=== PATIENT | female | born 1965 | race Caucasian/White ===

== ENCOUNTER 2016-10-08 11:36 | Emergency (ER) | payer BC, OTHER ==
[~2016-10-08] VITALS: Ht 167.6 cm; Wt 106.6 kg
--- NOTE | ~2016-10-08 | EKG ---
[place] [address] [facility] [employer] [place] [address] ELECTROCARDIOGRAM REPORT Name: ADELITALAMINEVANESA COVARRUBIAS [facility] [id number] Admission: 10/08/16 Attend Phys: Discharge: 10/08/16 Date of : 65 Report #: [id number] THIS REPORT FOR: //name// [facility] ED Test Date: 2016-10-08 Test Time: 11:42:35 Pat Name: LAMINE UREÑA Department: Room: Gender: F Lab Support Tech: [id number] : 1965 Requested By: Zeinab Sue Order Number: [id number] MD: Chandana Tellez Measurements Intervals [place] Rate: 121 P: 61 AK: 150 QRS: 17 QRSD: 88 T: 108 QT: 333 QTc: 473 Interpretive Statements Sinus tachycardia Ventricular bigeminy LAE, consider biatrial enlargement Electronically Signed On 10-09-2016 16:38:09 CDT by Chandana Tellez [email or web address] <ELECTRONICALLY SIGNED> By: Chandana Tellez MD 10/09/16 1638 1142 1142 MD SHANNAN Garcia
[~2016-10-08 11:36] MED LIST: ALPRAZOLAM ER1 MG PO; AMITRIPTYLINE H10 M1 PO; APAP500 PO; ASPIRIN325 PO; ATORVASTATIN CA40 MG PO; B12INJ IM; CELEBREX 200 M200 MG PO; CHANTIX1 MG; CIPROFLOXACIN500 M1 PO; CITRATE OF MAG296 ML PO; COLACE 100 MG100 MG PO; COLACE100 MG PO; COREG3.125 MG PO; CYMBALTA30 MG PO; DILAUDID 4 MG TA4 M1 PO; ELAVIL PO; FLAGYL500 MG PO; FLEXERIL PO; FLONASE 0.05%50 MCG NASAL; FOLIC ACID1 MG PO; HYDROCHLOROTH12.5 MG PO; HYDROCHLOROTHIA25 M1 PO; HYDROCODON-ACE1 EAC5 PO; HYDROCODON-ACE1 EAC8 PO; HYDROCODONE-AP1 EAC1 PO; LASIX 40 MG TAB40 M2 PO; LIDODERM 5%1 PATCH TD; LISINOPRIL2.5 MG PO; LISINOPRIL5 MG PO; LYRICA 75 MG CA75 MG PO; MELOXICAM7.5 MG PO; MIRALAX255 GM PO; MOBIC7.5 M1 PO; PERCOCET 5-3251 EACH PO; PERCOCET PO; PHENERGAN 25 MG25 M1 PO; POTASSIUM20 PO; PREDNISONE 20 M20 M1 PO; PREDNISONE 20 M20 MG PO; PRILOSEC 20 MG20 MG PO; PRILOSEC40 MG PO; PROTONIX40 M2 PO; PROZAC40 MG PO; REGLAN 10 MG TA10 M1 PO; SENNA PO; SYMBICORT160 MCG/4. INH; TOPROL XL50 MG PO; TRAMADOL 50 MG50 MG PO; VALIUM5 MG PO; XANAX 0.25 MG0.25 MG PO; ZOCOR40 MG PO; ZOFRAN ODT4 M1 PO; ZOFRAN ODT4 MG PO
[2016-10-08 11:57] LABS: ABG SAMPLE TYPE ARTERIAL; HCO3 22.3 mmol/L (22.0-26.0); LACTATE 2.86 mmol/L (0.5-2.0); O2(CT) 16.2 mL/dL (15.0-23.0); O2Hb 94.6 % (92.0-98.0); PCO2 23.4 mmHg (35.0-45.0); PO2 93.4 mmHg (80.0-100.0); STICK SITE R.RADIAL; pH 7.597 (7.360-7.450); sO2 98.2 % (92.0-98.0)
[2016-10-08 12:34] LABS: ABSOLUTE NEUTROPHILS 8.3 thou/uL (1.4-8.2); BASOPHILS 0.8 % (0.0-2.0); CALCIUM 9.3 mg/dL (8.5-10.1); CREATININE 0.8 mg/dL (0.6-1.0); EOSINOPHILS 0.8 % (0.0-3.0); HEMATOCRIT 33.9 % (37.0-47.0); HEMOGLOBIN 11.4 gm/dL (12.0-15.0); MCH 27.4 pg (26.0-34.0); MCHC 33.7 g/dL (28.0-37.0); MCV 81.4 fL (80.0-100.0); MONOCYTES 8.8 % (1.0-8.0); PLATELET COUNT 271 thou/uL (150-400); POLYS 67.6 % (36.0-66.0); POTASSIUM 4.2 mmol/L (3.5-5.1); RBC 4.17 mil/uL (4.20-5.00); RDW 15.9 % (10.5-14.5); WBC 14.1 thou/uL (4.0-11.0)
[2016-10-08 12:35] LABS: MANUAL DIFF NO
[2016-10-08] MEDS ORDERED: PREDNISONE 20 M20 MG PO (12:52)
[2016-10-08] MEDS ORDERED: TUSSIONEX PENN473 ML PO (12:52)
== END 2016-10-08 15:25 | disposition home or self-care (01) ==
LOC: ER 11:36
PROVIDERS: Emergency Medicine
DX: J06.9 Acute upper respiratory infection, unspecified (principal); R06.00 Dyspnea, unspecified; R07.89 Other chest pain; R06.4 Hyperventilation; J45.909 Unspecified asthma, uncomplicated; K21.9 Gastro-esophageal reflux disease without esophagitis; F17.210 Nicotine dependence, cigarettes, uncomplicated; M19.90 Unspecified osteoarthritis, unspecified site; Z87.442 Personal history of urinary calculi; Z90.49 Acquired absence of other specified parts of digestive tract; Z87.01 Personal history of pneumonia (recurrent); Z96.651 Presence of right artificial knee joint; Z98.890 Other specified postprocedural states; Z98.2 Presence of cerebrospinal fluid drainage device; Z88.0 Allergy status to penicillin; Z88.5 Allergy status to narcotic agent

== ENCOUNTER 2017-07-24 21:58 | Inpatient (IN) | payer BC, OTHER ==
[~2017-07-24] VITALS: Ht 170.2 cm; Wt 123.4 kg
--- NOTE | ~2017-07-24 | HC ---
[facility] [place] [address] CONSULTATION Name: LAMINE UREÑA Room #: 458-P ADM IN M.R.#: [id number] Admission: 07/24/17 Attend Phys: Glenn Moreno MD Discharge: Date of : 65 Report #: [id number] THIS REPORT FOR: //name// CC: FAM unknown Glenn Moreno INFECTIOUS DISEASES CONSULTATION REASON FOR CONSULTATION: I was asked to evaluate concerning meningitis. HISTORY OF PRESENT ILLNESS: The patient was a 51-year-old with a previous history of chronic headaches, pseudotumor cerebri, obstructive sleep apnea and rheumatoid arthritis, who was feeling well up until yesterday afternoon, when she had the acute onset of fever, chills, headache and neck stiffness. She had temperature up to 103 degrees. It did not improve after several hours and she presented to the Emergency Room for further evaluation at [facility]. There, a spinal tap was performed, which showed 38 wbcs, 79% neutrophils, 25 rbcs, protein of 63 and glucose of 56. I do not know what the opening pressure was. She was placed on vancomycin, meropenem and Decadron. Transfers to [facility] Intensive Care Unit for further treatment. Fever has resolved. Headache has improved. Still has some neck discomfort. Appetite has been reasonable. Reports no rash, nausea, vomiting, diarrhea, dysuria or frequency. No change in her chronic back pain. No change in mental status. Denies any vertigo or decreased hearing. She does have underlying asthma and was on prednisone about a week ago. She had sinus congestion at that time. It is noted that her CT scan of her head performed at [facility] was unremarkable. She reports traveling to see her family, first part of the week. Several small children who otherwise had been healthy. 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 No recent instrumentations to her back. She has a history of lumbar spine disease and has had reconstructive surgery and a cage placed. Also for her previous pseudotumor cerebri, had a lumbar drain placed. This subsequently was removed in 2014. She did have a spinal leak that required surgical repair. She has had no further issues since then. It is noted that her headaches improved significantly after going on CPAP at night. ALLERGIES: HYDROMORPHONE AND PENICILLIN. Penicillin was given when she was a baby and she had convulsions. Unclear if she is actually allergic to penicillin or not. She can tolerate cephalosporins. MEDICATIONS: Included Cymbalta, Coreg, omeprazole, Symbicort and Prilosec. In her record, it states that she was on 20 mg of prednisone, although the patient states she was off prednisone. [address] [address] CONSULTATION Name: ADELITALAMINE MARCI Room #: 458-P [facility] IN M.R.#: [id number] Admission: 07/24/17 Attend Phys: Glenn Moreno MD Discharge: Date of : 65 Report #: [id number] PAST MEDICAL HISTORY: Asthma; COPD; obstructive sleep apnea; lumbar disk disease, L5-S1, status post reconstruction; hypertension; depression; LP shunt 2008, removed 2014; nephrolithiasis; IBS; gastroesophageal reflux; JRA; degenerative arthritis, bilateral total knee arthroplasties; right hip repair; right rotator cuff repair; total abdominal hysterectomy; appendectomy; tonsillectomy; cholecystectomy and pneumonia in February. FAMILY HISTORY: Noncontributory. SOCIAL HISTORY: Smoker of cigarettes. No significant alcohol intake. No HIV risk factors. Lives at home with her family, and 2 teenaged children. 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 REVIEW OF SYSTEMS: In addition to the above, she has had no flare up of her arthritis. She has had no rash, nausea, vomiting or diarrhea. No pleuritic chest pain. It is noted, when taking her history, she was a bit inconsistent with her report. Some inconsistencies from the chart and her verbal history. PHYSICAL EXAMINATION: VITAL SIGNS: Afebrile, hemodynamically stable. GENERAL: Alert and cooperative. HEENT: Unremarkable. Eyes unremarkable. Mouth unremarkable. NECK: Supple, although she did complain of discomfort. EXTREMITIES: Straight leg raising normal. Extremities unremarkable. SKIN: Unremarkable. LYMPH: Unremarkable. LUNGS: Clear. HEART: Regular, without murmur. ABDOMEN: Soft and nontender. NEUROLOGICAL EXAMINATION: Nonfocal. LABORATORY STUDIES: CSF examination as noted above. Chest x-ray was clear. CT scan of the head negative with no sinus changes. Sodium 139, potassium 3.9, bicarbonate 25 and creatinine 0.9. Hemoglobin 11.3, platelet count 263,000 and white count was 7.5. Liver function test normal. IMPRESSION: A 51-year-old with acute febrile illness with evidence of meningitis. This is predominantly neutrophilic. The patient has had previous back surgery, exposure to young children and exposure to new job. Therefore, bacterial and viral etiologies would seem most likely. Doubt we are dealing with a tick-borne process. The patient has no history of such.HSV would also be considered. RECOMMENDATIONS: We will continue antibiotic coverage for community-acquired bacterial meningitis. We will obtain CSF sample for bacterial culture, viral [facility] [address] [place] [address] CONSULTATION Name: LAMINE UREÑA Room #: 458-P ADM IN M.R.#: [id number] Admission: 07/24/17 Attend Phys: Glenn Moreno MD Discharge: Date of : 65 Report #: [id number] analysis for HSV and Enterovirus. Continue in droplet precautions for the next 24 hours. The patient appears stable at this point in time. Should be able to get out of the ICU and go to a monitored bed. <ELECTRONICALLY SIGNED> By: Andrea Castro MD 07/26/17 1041 1050 1344 Andrea Castro MD /nt
[~2017-07-24 21:58] MED LIST changes: +TUSSIONEX PENN473 ML PO
[2017-07-25] VITALS (20 sets, daily range): BP systolic 112–158; BP diastolic 62–93
[2017-07-25] MEDS ORDERED: VENTOLIN HFA 1818 GM INH (02:21)
[2017-07-25] MEDS ORDERED: BREO ELLIPTA 11 EACH INH (02:22)
[2017-07-25] MEDS ORDERED: VOLTAREN-XR100 MG (02:30)
[2017-07-25] MEDS ORDERED: TOPROL XL25 MG PO (02:31)
[2017-07-25] MEDS ORDERED: SPIRIVA INH (02:35)
[2017-07-25 05:13] LABS: HEMATOCRIT 33.6 % (37.0-47.0); HEMOGLOBIN 11.3 gm/dL (12.0-15.0); MCH 27.1 pg (26.0-34.0); MCHC 33.5 g/dL (28.0-37.0); MCV 80.9 fL (80.0-100.0); RBC 4.16 mil/uL (4.20-5.00); RDW 15.3 % (10.5-14.5); WBC 7.5 thou/uL (4.0-11.0)
[2017-07-25 05:17] LABS: CALCIUM 8.9 mg/dL (8.5-10.1); CREATININE 0.9 mg/dL (0.6-1.0); POTASSIUM 3.9 mmol/L (3.5-5.1)
[2017-07-25] MEDS ORDERED: IBUPROFEN 800800 M1 PO (22:18)
[2017-07-26 01:07] VITALS: BP 133/78
[2017-07-26 01:09] LABS: HIV ANTIBODY Non Reactive (Non Reactive)
[2017-07-26 07:14] VITALS: BP 156/93
[2017-07-26 08:45] VITALS: BP 138/76
[2017-07-26 15:20] VITALS: BP 131/72
[2017-07-26 19:41] VITALS: BP 139/81
[2017-07-27] VITALS (7 sets, daily range): BP systolic 135–175; BP diastolic 71–98
[2017-07-27 12:45] LABS: HEMATOCRIT 31.9 % (37.0-47.0); HEMOGLOBIN 10.6 gm/dL (12.0-15.0); MCH 26.7 pg (26.0-34.0); MCHC 33.3 g/dL (28.0-37.0); MCV 80.2 fL (80.0-100.0); RBC 3.98 mil/uL (4.20-5.00); RDW 15.3 % (10.5-14.5); WBC 21.8 thou/uL (4.0-11.0)
[2017-07-27 12:57] LABS: ALBUMIN 3.2 g/dL (3.4-5.0); CALCIUM 8.8 mg/dL (8.5-10.1); CREATININE 0.9 mg/dL (0.6-1.0); MAGNESIUM 2.1 mg/dL (1.8-2.4); POTASSIUM 4.5 mmol/L (3.5-5.1); TOTAL BILIRUBIN 0.2 mg/dL (<0.1-1.0)
[2017-07-27 14:43] LABS: CSF CLARITY CLOUDY; CSF COLOR PINK; VOLUME 13 ml
[2017-07-27 14:44] LABS: CSF WBC 0 /mm3 (0-10)
[2017-07-27 14:45] LABS: CSF RBC 650 /mm3
[2017-07-27 14:48] LABS: CSF GLUCOSE 79 mg/dL (40-70); CSF PROTEIN 34 mg/dL (15-45)
[2017-07-28 03:26] VITALS: BP 138/66
[2017-07-28 04:30] LABS: HEMATOCRIT 30.8 % (37.0-47.0); HEMOGLOBIN 10.5 gm/dL (12.0-15.0); MCHC 34.2 g/dL (28.0-37.0); RBC 3.76 mil/uL (4.20-5.00); RDW 15.6 % (10.5-14.5)
[2017-07-28 04:47] LABS: CALCIUM 7.6 mg/dL (8.5-10.1); CREATININE 0.9 mg/dL (0.6-1.0); POTASSIUM 4.3 mmol/L (3.5-5.1)
[2017-07-28 09:13] VITALS: BP 145/75
[2017-07-28] MEDS ORDERED: ACETAZOLAMIDE250 M1 PO (11:21)
[2017-07-28] MEDS ORDERED: PERCOCET PO (11:21)
[2017-07-28 11:31] VITALS: BP 145/75
== END 2017-07-28 18:18 | disposition home or self-care (01) | DRG 103 ==
LOC: ICU 21:58 → 4W 07-25 18:40
PROVIDERS: Internal Medicine; Nurse Practitioner Family; Specialist
PROC: 009U3ZX Drainage of Spinal Canal, Percutaneous Approach, Diagnostic (ICD-10-PCS; principal; 2017-07-27)
DX: G93.2 Benign intracranial hypertension (principal); I42.9 Cardiomyopathy, unspecified; G47.33 Obstructive sleep apnea (adult) (pediatric); M06.9 Rheumatoid arthritis, unspecified; J44.9 Chronic obstructive pulmonary disease, unspecified; I10 Essential (primary) hypertension; F32.9 Major depressive disorder, single episode, unspecified; K58.9 Irritable bowel syndrome, unspecified; K21.9 Gastro-esophageal reflux disease without esophagitis; F17.210 Nicotine dependence, cigarettes, uncomplicated; M81.0 Age-related osteoporosis without current pathological fracture; Z96.651 Presence of right artificial knee joint; M19.90 Unspecified osteoarthritis, unspecified site; G43.909 Migraine, unspecified, not intractable, without status migrainosus; Z88.8 Allergy status to other drugs, medicaments and biological substances; Z88.0 Allergy status to penicillin; Z79.899 Other long term (current) drug therapy; Z87.442 Personal history of urinary calculi; Z90.710 Acquired absence of both cervix and uterus; Z90.49 Acquired absence of other specified parts of digestive tract; Z87.01 Personal history of pneumonia (recurrent); Z98.2 Presence of cerebrospinal fluid drainage device; Z82.49 Family history of ischemic heart disease and other diseases of the circulatory system
CPT/HCPCS: 10045; 10047; 10078; 27000

== ENCOUNTER → 2020-04-21 | Outpatient (CLI) | payer BC, OTHER ==
[~2020-04-21] VITALS: Ht 170.2 cm; Wt 133.4 kg
[~2020-04-21] MED LIST changes: +ACETAZOLAMIDE250 M1 PO; +ASA81BEC PO; +BACTRIM DS TAB1 EAC1 PO; +BREO ELLIPTA 11 EACH INH; +CRESTOR10 MG PO; +IBUPROFEN 800800 M1 PO; +SPIRIVA INH; +TOPROL XL25 MG PO; +VENTOLIN HFA 1818 GM INH; +VOLTAREN-XR100 MG
[2020-04-21 08:52] VITALS: BP 138/79
[2020-04-21 09:18] LABS: HEMATOCRIT 36.6 % (37.0-47.0); HEMOGLOBIN 11.9 gm/dL (12.0-15.0); MCH 27.3 pg (26.0-34.0); MCHC 32.5 g/dL (28.0-37.0); MCV 84.1 fL (80.0-100.0); RBC 4.35 mil/uL (4.20-5.00); RDW 15.9 % (10.5-14.5); WBC 8.2 thou/uL (4.0-11.0)
[2020-04-21 09:32] LABS: CALCIUM 8.8 mg/dL (8.5-10.1); POTASSIUM 4.4 mmol/L (3.5-5.1)
--- NOTE | 2020-04-21 13:41 | EKG ---
[place] [address] [employer] [facility] [place] [address] ELECTROCARDIOGRAM REPORT Name: LAMINE UREÑA [facility] [id number] Admission: 04/21/20 Attend Phys: Carlo Dale MD, Discharge: Date of : 65 Report #: [id number] [facility] Test Date: 2020-04-21 Test Time: 08:32:42 Pat Name: LAMINE UREÑA Department: Room: Gender: F Business Process Architect: SBULOW : 1965 Requested By: Carlo Dale Order Number: [id number] MD: Rafael Chavez Measurements Intervals [place] Rate: 85 P: 64 IN: 163 QRS: 23 QRSD: 94 T: 38 QT: 381 QTc: 453 Interpretive Statements Sinus arrhythmia Left atrial enlargement RSR' in V1 or V2, right VCD or RVH Compared to ECG 10/08/2016 11:42:35 Right ventricular hypertrophy now present RSR' in V1 or V2 now present Sinus tachycardia no longer present Ventricular premature complex(es) no longer present Electronically Signed On 04-21-2020 13:41:44 AUTOMOBILE AND PROPERTY UNDERWRITER by Rafael Chavez [email or web address] <ELECTRONICALLY SIGNED> By: Rafael Chavez MD, [facility] 04/21/20 1341 0832 0832 Rafael Chavez MD, [facility] /EPI
--- NOTE | 2020-04-21 18:14 | CATHLAB ---
[facility] [place] [address] INVASIVE PROCEDURE REPORT Name: MARLENA UREÑA Room #: REG ROSIE Ramires.#: [id number] Admission: 04/21/20 Attend Phys: Carlo Dale MD, Discharge: Date of : 65 Report #: [id number] THIS REPORT FOR: cc: Dean Patrick James DO Mancuso, Gerald M. MD [facility] ~ APPROVED REPORT Study performed: 04/21/2020 10:13:24 Patient Details Patient Status: Out-Patient Room #: The patient is a 54 year-old female Event Personnel Carlo Dale Crane Service Technician, Keith Barnett RN RN, Marlena Castaneda RTR, SEWING MACHINE MAINTENANCE MECHANIC Monitor, Debbie Pham RTR Scrub Procedures Performed Art Access - R femoral artery* Fritz Access - R femoral vein Right and Left Heart Cath w/or w/o Coronarie [id number] [facility] 68849 Initial Mod Sed Same Phys/QHP Gr5y [id number] 16887 Mod Sed Same Phys/QHP Ea 875197 Hemostasis w/ Mynx Hemostasis with Manual pressure Abdominal Aortography 376951 Indication Dyspnea, Positive stress test Procedure Narrative The Right Groin^ was infiltrated with 1% Lidocaine subcutaneous anesthesia. A PINNACLE 6FR TIF Sheath #[id number] sheath was inserted into the RFA. Coronary angiography was performed using coronary diagnostic catheters. The right coronary system was accessed and visualized with a JR4 catheter. The left coronary system was accessed and visualized with a JL4 catheter. The left ventricle was accessed and visualized with a Pigtail catheter. Left ventriculogram was performed in 30 degree projection. An aortogram of the abdominal aorta was performed. Pre-demployment femoral angiogram was performed . Closure device was deployed with a 6 Fr MYNXGRIP 6/7F #[id number]. Hemostasis was obtained with manual pressure following sheath removal without any complications. The patient tolerated the procedure well and there were no complications associated with the procedure. There was no hematoma. [facility] [address] [place] [address] INVASIVE PROCEDURE REPORT Name: MARLENA UREÑA Room #: [facility] [id number] Admission: 04/21/20 Attend Phys: Carlo Dale, Discharge: Date of : 65 Report #: [id number] Intraoperative Conscious Sedation Sedation start time: 11:16 Case end Time: 11:58 Fentanyl 100 mcg Versed 2 mg Fluoro Time: 2.80 minutes Dose: DAP 9312.90 cGycm2 997 mGy Contrast Type and Amount: Visipaque 115 ml Hemodynamics The right atrial mean pressure is 16 mmHg. The right ventricular pressure is 48/16 mmHg. The pulmonary artery pressure is 45/26 mmHg with a mean of 34 mmHg. The mean pulmonary capillary wedge pressure is 25 mmHg. The aortic pressure is 147/85 mmHg with a mean of 112 mmHg. The left ventricular pressure is 153/26 mmHg with a mean of mmHg. The left ventricular end diastolic pressure is 36 mmHg. The cardiac output using thermo method is 4.70 L/min. The cardiac index using thermo method is 1.97 L/min/m2. Conclusion #1. Successful right heart catheterization with cardiac output by thermodilution. See above hemodynamics. #2 left main free of disease giving rise to LAD and circumflex. #3 LAD extends to the apex with mild irregularity #4 circumflex OM is nondominant with mild disease. #5 LAD is moderate size distribution wraps the apex no occlusive disease. #6 abdominal aortogram is abdominal aorta is intact without evidence of aneurysm. Recommendations and plan: No indication for coronary intervention. There is mild elevation of pulmonary pressures pulmonary wedge pressure. Salt and fluid restriction continue diuresis. Follow-up with Dr. Chana Fuentes [place] <ELECTRONICALLY SIGNED> By: Carlo Dale MD, FACC 04/21/201813 13 13 Carlo Dale MD, FACC /INF
== END | disposition home or self-care (01) ==
LOC: CATH 07:09
PROVIDERS: ATTEND Internal Medicine Cardiovascular Disease
DX: R94.39 Abnormal result of other cardiovascular function study (principal); I25.10 Atherosclerotic heart disease of native coronary artery without angina pectoris; R06.00 Dyspnea, unspecified; I11.0 Hypertensive heart disease with heart failure; I50.9 Heart failure, unspecified; I42.9 Cardiomyopathy, unspecified; G47.30 Sleep apnea, unspecified; J44.9 Chronic obstructive pulmonary disease, unspecified; G47.33 Obstructive sleep apnea (adult) (pediatric); F32.9 Major depressive disorder, single episode, unspecified; K21.9 Gastro-esophageal reflux disease without esophagitis; M19.90 Unspecified osteoarthritis, unspecified site; M81.0 Age-related osteoporosis without current pathological fracture; F17.210 Nicotine dependence, cigarettes, uncomplicated; Z90.49 Acquired absence of other specified parts of digestive tract; Z98.890 Other specified postprocedural states; Z79.899 Other long term (current) drug therapy; Z88.0 Allergy status to penicillin; Z88.8 Allergy status to other drugs, medicaments and biological substances

== ENCOUNTER 2021-04-15 19:23 | Inpatient (IN) | payer BC, OTHER ==
[~2021-04-15] VITALS: Ht 170.2 cm; Wt 124.1 kg
[2021-04-15] MEDS ORDERED: DULOXETINE HCL60 MG PO (22:21)
[2021-04-15] MEDS ORDERED: BREO ELLIPTA 21 EACH IH (22:25)
[2021-04-15] MEDS ORDERED: METOPROLOL TART25 MG PO (22:26)
[2021-04-15] MEDS ORDERED: PROAIR DIGIHAL90 MCG (22:28)
[2021-04-15] MEDS ORDERED: FUROSEMIDE 40 M40 MG (22:29)
[2021-04-15] MEDS ORDERED: COZAAR 50 MG TA50 MG PO (22:30)
[2021-04-15] MEDS ORDERED: SINGULAIR 10 MG10 M1 PO (22:30)
[2021-04-15] MEDS ORDERED: TIZANIDINE HCL2 M1 PO (22:31)
[2021-04-15 22:44] VITALS: BP 137/64
[2021-04-15 23:30] LABS: HEMATOCRIT 27.7 % (37.0-47.0); HEMOGLOBIN 9.2 gm/dL (12.0-15.0); MCH 25.2 pg (26.0-34.0); MCHC 33.3 g/dL (28.0-37.0); MCV 75.5 fL (80.0-100.0); RBC 3.66 mil/uL (4.20-5.00); RDW 18.4 % (10.5-14.5); WBC 4.7 thou/uL (4.0-11.0)
[2021-04-15 23:44] LABS: ALBUMIN 2.4 g/dL (3.4-5.0); CALCIUM 7.6 mg/dL (8.5-10.1); CREATININE 0.6 mg/dL (0.6-1.0); POTASSIUM 3.4 mmol/L (3.5-5.1); TOTAL BILIRUBIN 0.4 mg/dL (0.2-1.0); TOTAL PROTEIN 6.4 g/dL (6.4-8.2)
[2021-04-16] MEDS ORDERED: FUROSEMIDE 40 M40 MG PO (02:26)
[2021-04-16] MEDS ORDERED: TOPROL XL50 MG (02:27)
[2021-04-16] MEDS ORDERED: IBU800 MG PO (02:27)
[2021-04-16] MEDS ORDERED: GRALISE300 MG PO (02:29)
[2021-04-16] MEDS ORDERED: FLEXERIL PO (02:30)
[2021-04-16] MEDS ORDERED: RESTORIL7.5 M1 PO (02:31)
[2021-04-16] MEDS ORDERED: RAYOS5 MG PO (02:31)
[2021-04-16] MEDS ORDERED: ARAVA20 MG PO (04:00)
[2021-04-16] MEDS ORDERED: OXYCODONE HCL 55 MG PO (04:00)
[2021-04-16 08:21] VITALS: BP 182/88
[2021-04-16 14:00] VITALS: BP 198/101
[2021-04-16 15:54] LABS: HEMATOCRIT 26.7 % (37.0-47.0); MCH 25.3 pg (26.0-34.0); MCHC 33.5 g/dL (28.0-37.0); MCV 75.5 fL (80.0-100.0); RBC 3.54 mil/uL (4.20-5.00); RDW 18.3 % (10.5-14.5); WBC 5.7 thou/uL (4.0-11.0)
[2021-04-16 16:13] LABS: ALBUMIN 2.3 g/dL (3.4-5.0); CALCIUM 7.9 mg/dL (8.5-10.1); CREATININE 0.8 mg/dL (0.6-1.0); POTASSIUM 3.2 mmol/L (3.5-5.1); TOTAL BILIRUBIN 0.4 mg/dL (0.2-1.0); TOTAL PROTEIN 6.7 g/dL (6.4-8.2)
[2021-04-16 17:52] VITALS: BP 150/80
[2021-04-16 19:58] VITALS: BP 148/70
[2021-04-17 04:24] VITALS: BP 121/85
--- NOTE | 2021-04-17 05:03 | HC ---
[facility] [place] [address] [place] [address] CONSULTATION Name: LAMINE UREÑA Room #: 460-P ADM IN M.R.#: [id number] Admission: 04/15/21 Attend Phys: Raulito Grimaldo MD Discharge: Date of : 65 Report #: [id number] THIS REPORT FOR: cc: Dean Patrick James DO Barry, Joseph W. MD ~ DATE OF SERVICE: 04/16/2021 INFECTIOUS DISEASE CONSULTATION ATTENDING PHYSICIAN: Dr. Grimaldo. REASON FOR EVALUATION: Febrile illness with associated diarrhea, confirmed Clostridium difficile colitis. HISTORY OF PRESENT ILLNESS: Chart reviewed. The patient examined. This is a 55-year-old woman with fairly extensive medical history given her age, has underlying rheumatoid arthritis, also has a history of cardiomyopathy, who has been ill for an excess of 2 weeks, noted onset of diarrhea and subsequently developed fevers, some of which have been high-grade. She was evaluated multiple times, initially was confirmed to have a positive C. diff testing, was placed on antibiotic therapy. This has persisted, however. She had a followup subsequent to the fevers, was diagnosed with pneumonia, still persisted to have severe headaches, underwent lumbar puncture, felt to have a urinalysis consistent with aseptic or viral meningitis. In spite of all the evaluation, has been fairly unremarkable in terms of what is causing persistent fevers. It is notable she has been on immunosuppressive therapy for her rheumatoid arthritis. She did receive the COVID vaccination, some concern about possible adverse drug effect due to that. She states she feels poorly, although she is quite lucid at this point. She is maintained on room air. She has undergone evaluation since admission. White count was 4.7. She is anemic at 9.2. CRP of 57.3. Electrolytes are fairly unremarkable. Albumin 2.4. LFTs unremarkable. Imaging with CT of the chest, no acute findings, no infiltrates, no adenopathy. CT of the abdomen and pelvis similarly had no acute abnormality. Sed rate was 74. On questioning, she denies any particular exposure history. She is monogamous. No recent travel. She does have multiple cats that are outdoor. No dietary indiscretion. Blood cultures have been collected, in progress. Empirically started on cefepime, oral vancomycin as a one-time dose. ALLERGIES: LISTED TO PENICILLINS, AZITHROMYCIN, HYDROMORPHONE. CURRENT MEDICATIONS: Include temazepam, IV vancomycin, metoprolol, losartan, p.r.n. analgesics, antiemetics, cefepime, oral vancomycin, tizanidine. PAST MEDICAL HISTORY: Rheumatoid arthritis, reflux, hypertension, depression, anxiety, degenerative joint disease, previous back surgeries. [address] [address] CONSULTATION Name: LAMINE UREÑA Room #: 460-P [facility] IN M.R.#: [id number] Admission: 04/15/21 Attend Phys: Raulito Grimaldo MD Discharge: Date of : 65 Report #: [id number] SOCIAL HISTORY: Smokes half a pack a day. No illicit drug use. No ethanol. FAMILY HISTORY: Noncontributory. REVIEW OF SYSTEMS: Otherwise, unremarkable. PHYSICAL EXAMINATION: GENERAL: She is alert, cooperative, appropriate, mild distress. She is lucid. VITAL SIGNS: Temperature 97.8, pulse 98, respirations 18, blood pressure is 137/64. SKIN: Warm, dry, no rashes. HEENT: Otherwise, unremarkable. No overt dental disease. NECK: Supple. LUNGS: Generally clear to auscultation. HEART: Regular, borderline tachycardic. I do not appreciate any murmur. ABDOMEN: Mildly distended, slightly tender. No peritoneal signs. GENITOURINARY AND RECTAL: Deferred. LABORATORY DATA: Imaging as noted above. Lactic acid 0.8. Sed rate of 74. Electrolytes: Sodium 140, potassium 3.4, chloride 103, bicarbonate is 20, anion gap of 9, BUN and creatinine 4 and 0.6, glucose of 94, AST of 22, ALT of 19, albumin 2.4, total protein of 6.4. CRP of 57.3. CBC: White count of 4.7, H and H 9.2 and 27.7, platelets of 229. ASSESSMENT AND PLAN: Febrile illness, apparently has been going on in excess of 2 weeks, in spite of a fairly extensive medical evaluation, have found issues including Clostridium difficile colitis, question of pneumonitis, although chest CT was unremarkable. May have mild viral meningitis, although without evident exposure history. Blood cultures have been collected. We will check echo to exclude an endovascular type infection. She notes previous blood cultures have been sterile. Imaging has not been helpful thus far. Do additional diagnostic testing. Did discuss issue such as HIV. She is agreeable to being tested for that as well. At this point, she is not overtly toxic. We will continue to monitor expectantly for clinical evidence of a more focal area of pyogenic infection. <ELECTRONICALLY SIGNED> By: Roni Greer MD 04/17/21 0503 0605 0651 Roni Greer MD /nt
[2021-04-17 07:08] LABS: HIV ANTIBODY Non Reactive (Non Reactive)
[2021-04-17 07:20] VITALS: BP 144/84
[2021-04-17 15:37] VITALS: BP 124/75
[2021-04-17 19:19] VITALS: BP 171/98
[2021-04-18 10:07] LABS: ANA INTERPRETATION Negative (Negative)
[2021-04-18 15:35] VITALS: BP 137/79
[2021-04-18 20:38] VITALS: BP 187/108
[2021-04-18 21:43] VITALS: BP 187/108
[2021-04-22 11:21] LABS: BARTONELLA QUINTANA IGG Negative titer (Neg:<1:320); BARTONELLA QUINTANA IGM Negative titer (Neg:<1:100); SYPHILIS AB Reactive (Non Reactive)
== END 2021-04-19 | disposition home or self-care (01) | DRG 98 ==
LOC: 4S 19:23 → 4W 22:11 → 4S 22:11 → 4W 04-16 18:11
PROVIDERS: Nurse Practitioner Family; Specialist; ADMIT Hospitalist; ATTEND Hospitalist
PROC: 0DBE8ZX Excision of Large Intestine, Via Natural or Artificial Opening Endoscopic, Diagnostic (ICD-10-PCS; principal; 2021-04-19)
DX: G03.0 Nonpyogenic meningitis (principal); I42.9 Cardiomyopathy, unspecified; A04.72 Enterocolitis due to Clostridium difficile, not specified as recurrent; F41.9 Anxiety disorder, unspecified; F32.9 Major depressive disorder, single episode, unspecified; I10 Essential (primary) hypertension; E78.5 Hyperlipidemia, unspecified; J45.909 Unspecified asthma, uncomplicated; M06.9 Rheumatoid arthritis, unspecified; G47.33 Obstructive sleep apnea (adult) (pediatric); M81.0 Age-related osteoporosis without current pathological fracture; M19.90 Unspecified osteoarthritis, unspecified site; G89.29 Other chronic pain; M45.9 Ankylosing spondylitis of unspecified sites in spine; M79.7 Fibromyalgia; D70.9 Neutropenia, unspecified; T45.1X5A Adverse effect of antineoplastic and immunosuppressive drugs, initial encounter; D64.9 Anemia, unspecified; K11.20 Sialoadenitis, unspecified; Z88.6 Allergy status to analgesic agent; Z88.0 Allergy status to penicillin; Z87.442 Personal history of urinary calculi; Z90.49 Acquired absence of other specified parts of digestive tract; Z82.49 Family history of ischemic heart disease and other diseases of the circulatory system; Z83.6 Family history of other diseases of the respiratory system; Y92.89 Other specified places as the place of occurrence of the external cause
CPT/HCPCS: 10045; 10047; 10102